=== PATIENT | female | born 1955 | race Caucasian/White ===

== ENCOUNTER 2021-08-17 09:03 | Inpatient (IN) | payer MEDICAID ==
[~2021-08-17] VITALS: Ht 160 cm; Wt 94.7 kg
[2021-08-17 09:53] LABS: BASOPHILS % (AUTO) 0.4 % (0.0-2.0); EOSINOPHILS % (AUTO) 0.3 % (1.0-6.0); HEMATOCRIT 36.8 % (36-46); HEMOGLOBIN 12.7 g/dL (12.0-16.0); LYMPHOCYTES # (AUTO) 0.9 K/uL (1.0-4.8); LYMPHOCYTES % (AUTO) 15.2 % (22.0-44.0); MEAN CORPUSCULAR HEMOGLOBIN 31.1 pg (26.0-34.0); MEAN CORPUSCULAR HGB CONC 34.7 G/dL (31.0-37.0); MEAN CORPUSCULAR VOLUME 90 fL (80-100); MONOCYTES # (AUTO) 0.5 K/uL (0.1-1.0); MONOCYTES % (AUTO) 8.5 % (2.0-9.0); NEUTROPHILS # (AUTO) 4.6 K/uL (1.8-7.7); NEUTROPHILS % (AUTO) 75.6 % (40.0-70.0); PLATELET COUNT (AUTO) 271 K/uL (150-450); RED CELL DISTRIBUTION WIDTH 13.3 % (11.5-14.5)
[2021-08-17 10:08] LABS: ANION GAP 8 mmol/L (8-16); CALCIUM, TOTAL 9.2 mg/dL (8.8-10.5); CARBON DIOXIDE 29 mmol/L (22-29); CHLORIDE 104 mmol/L (98-107); CREATININE 0.65 mg/dL (0.60-1.30); GLOMERULAR FILTR. RATE CALC > 60 mL/min (>60); GLUCOSE,RANDOM 139 mg/dL (70-110); POTASSIUM 4.1 mmol/L (3.5-5.1); SODIUM SERUM 141 mmol/L (136-145); UREA NITROGEN, BLOOD 11 mg/dL (7-18)
[2021-08-17 10:13] LABS: ALANINE AMINOTRANSFERASE 310 U/L (12-78); ALBUMIN 2.9 g/dL (3.4-5.0); ALKALINE PHOSPHATASE 107 U/L (46-116); ASPARTATE AMINOTRANSFERASE 129 U/L (15-37); BILIRUBIN,TOTAL 0.6 mg/dL (0.1-1.0); TOTAL PROTEIN, SERUM 7.7 g/dL (6.4-8.2)
[2021-08-17 10:40] LABS: COVID AG,FIA SOURCE NASOPHARYNGEAL
[2021-08-17] MEDS ORDERED: AZITHROMYCIN 500 MG/NS 250 ML IV ONE (10:45)
[2021-08-17] MEDS ORDERED: CefTRIAXone 1 GM/DEXTROSE 50 ML IV ONE (10:45)
[2021-08-17] MEDS ORDERED: MAGNESIUM HYDROXIDE SUSPENSION 30 ML UDCUP PO PRN (11:15)
[2021-08-17 11:46] LABS: INFLUENZA TYPE A NEGATIVE FOR TYPE A (NEGATIVE); INFLUENZA TYPE B NEGATIVE FOR TYPE B (NEGATIVE)
[2021-08-17 11:52] LABS: C-REACTIVE PROTEIN QUANT 8.71 mg/dL (0.00-0.30)
[2021-08-17] MEDS: AmLODIPine BESYLATE 5 MG TABLET PO SCH (12:16)
[2021-08-17] MEDS: ASPIRIN 81 MG CHEWABLE TABLET PO SCH (12:17)
[2021-08-17] MEDS ORDERED: SODIUM CHLORIDE 0.9% 100 ML ONE (13:18)
[2021-08-17] MEDS ORDERED: IOHEXOL 350 MG/ML 75 ML VIAL ONE (13:18)
[2021-08-17] MEDS: HEPARIN SODIUM,PORCINE 5,000 UNITS/ML VIAL SQ SCH (16:33)
[2021-08-17] MEDS: ACETAMINOPHEN 325 MG TABLET PO PRN (18:48)
[2021-08-18] MEDS ORDERED: PNEUMOCOCCAL VACCINE POLYVALENT 0.5 ML VIAL [PPSV23] IM. ONE (00:45)
[2021-08-18] MEDS ORDERED: INFLUENZA VIRUS VACCINE QVS 2021-22 (6MO+)/PF 60 MCG/0.5 ML SYRINGE IM. ONE (00:45)
[2021-08-18] MEDS: HEPARIN SODIUM,PORCINE 5,000 UNITS/ML VIAL SQ SCH ×4 (00:58→23:10)
[2021-08-18 01:21] VITALS: BP 136/76
[2021-08-18 04:44] VITALS: BP 153/96
[2021-08-18 07:32] VITALS: BP 143/89
[2021-08-18 07:40] LABS: ALANINE AMINOTRANSFERASE 226 U/L (12-78); ALBUMIN 2.6 g/dL (3.4-5.0); ALKALINE PHOSPHATASE 97 U/L (46-116); ANION GAP 7 mmol/L (8-16); ASPARTATE AMINOTRANSFERASE 70 U/L (15-37); BILIRUBIN,TOTAL 0.7 mg/dL (0.1-1.0); CARBON DIOXIDE 29 mmol/L (22-29); CHLORIDE 105 mmol/L (98-107); CREATININE 0.57 mg/dL (0.60-1.30); GLOMERULAR FILTR. RATE CALC > 60 mL/min (>60); GLUCOSE,RANDOM 138 mg/dL (70-110); POTASSIUM 3.7 mmol/L (3.5-5.1); SODIUM SERUM 141 mmol/L (136-145); TOTAL PROTEIN, SERUM 7.3 g/dL (6.4-8.2); UREA NITROGEN, BLOOD 8 mg/dL (7-18)
[2021-08-18] MEDS: AmLODIPine BESYLATE 5 MG TABLET PO SCH (08:18)
[2021-08-18] MEDS: FAMOTIDINE 20 MG TABLET PO SCH (08:18)
[2021-08-18] MEDS: ASPIRIN 81 MG CHEWABLE TABLET PO SCH (08:18)
[2021-08-18 15:45] VITALS: BP 145/84
[2021-08-18 19:45] VITALS: BP 149/81
[2021-08-18] MEDS: ACETAMINOPHEN 325 MG TABLET PO PRN (23:10)
[2021-08-18 23:20] VITALS: BP 146/80
[2021-08-19 04:25] VITALS: BP 154/85
[2021-08-19 08:21] VITALS: BP 123/62
[2021-08-19] MEDS: AmLODIPine BESYLATE 5 MG TABLET PO SCH (08:35)
[2021-08-19] MEDS: HEPARIN SODIUM,PORCINE 5,000 UNITS/ML VIAL SQ SCH (08:36)
[2021-08-19] MEDS: ASPIRIN 81 MG CHEWABLE TABLET PO SCH (08:36)
[2021-08-19] MEDS: FAMOTIDINE 20 MG TABLET PO SCH (08:36)
[2021-08-19] MEDS ORDERED: AMLO-257 PO (10:27)
[2021-08-19] MEDS ORDERED: ASPI81 PO (10:27)
[2021-08-19 15:31] VITALS: BP 145/85
== END 2021-08-19 17:30 | disposition home or self-care (01) | DRG 137 ==
LOC: EMS 09:06 → 6N 22:28
PROVIDERS: ADMIT Internal Medicine; ATTEND Internal Medicine
DX: U07.1 COVID-19 (principal); E66.9 Obesity, unspecified; I10 Essential (primary) hypertension; Z79.899 Other long term (current) drug therapy; Z78.9 Other specified health status; Z68.37 Body mass index [BMI] 37.0-37.9, adult
CPT/HCPCS: 71046; 71275; 80053; 83605; 85025; 85379; 86140; 87804; 99285; J0456; J0696; J1644; J7050; Q9967; 36415-L1; 36415-TC; U0003

== ENCOUNTER 2022-08-30 09:58 | Emergency (ER) | payer MEDICAID, OTHER ==
[~2022-08-30] VITALS: Ht 165.1 cm; Wt 95.5 kg
[~2022-08-30 09:58] MED LIST: AMLO-257 PO; ASPI81 PO
[2022-08-30] MEDS ORDERED: LISI-893 PO (10:06)
[2022-08-30] MEDS ORDERED: IBUPROFEN 600 MG TABLET PO ONE (11:45)
[2022-08-30] MEDS ORDERED: ACETAMINOPHEN 500 MG TABLET PO ONE (11:45)
[2022-08-30] MEDS ORDERED: AMLO10TA55 PO (11:50)
[2022-08-30 12:08] LABS: BASOPHILS % (AUTO) 1.3 % (0.0-2.0); EOSINOPHILS % (AUTO) 1.5 % (1.0-6.0); HEMATOCRIT 41.3 % (36-46); HEMOGLOBIN 13.7 g/dL (12.0-16.0); LYMPHOCYTES # (AUTO) 1.9 K/uL (1.0-4.8); LYMPHOCYTES % (AUTO) 23.4 % (22.0-44.0); MEAN CORPUSCULAR HEMOGLOBIN 30.8 pg (26.0-34.0); MEAN CORPUSCULAR HGB CONC 33.1 G/dL (31.0-37.0); MEAN CORPUSCULAR VOLUME 93 fL (80-100); MONOCYTES # (AUTO) 0.7 K/uL (0.1-1.0); MONOCYTES % (AUTO) 8.9 % (2.0-9.0); NEUTROPHILS # (AUTO) 5.4 K/uL (1.8-7.7); NEUTROPHILS % (AUTO) 64.9 % (40.0-70.0); PLATELET COUNT (AUTO) 232 K/uL (150-450); RED BLOOD CELL COUNT(AUTO) 4.44 MIL/uL (4.00-5.20); RED CELL DISTRIBUTION WIDTH 13.8 % (11.5-14.5)
[2022-08-30 12:22] LABS: ANION GAP 7 mmol/L (8-16); CALCIUM, TOTAL 9.2 mg/dL (8.8-10.5); CARBON DIOXIDE 29 mmol/L (22-29); CHLORIDE 105 mmol/L (98-107); CREATININE 0.65 mg/dL (0.60-1.30); GLOMERULAR FILTR. RATE CALC > 60 mL/min (>60); GLUCOSE,RANDOM 117 mg/dL (70-110); POTASSIUM 4.6 mmol/L (3.5-5.1); SODIUM SERUM 141 mmol/L (136-145); UREA NITROGEN, BLOOD 15 mg/dL (7-18)
[2022-08-30] MEDS ORDERED: CEPH-558 PO (13:17)
[2022-08-30 13:40] VITALS: BP 145/76
== END 2022-08-30 13:49 | disposition home or self-care (01) ==
LOC: EMS 10:21
DX: L03.116 Cellulitis of left lower limb (principal)
CPT/HCPCS: 80048; 85025; 93971; 99285